=== PATIENT | female | born 1930 | race Caucasian/White ===

== ENCOUNTER 2016-08-31 23:26 | Emergency (ER) | payer MEDICARE, OTHER ==
[~2016-08-31 23:26] MED LIST: AMBIEN5 MG PO; ARTIFICIAL TEAR15 M8 OP; BUDESONIDE EC3 MG PO; BUDESONIDE PO; CALCIUM 6001.5 G PO; CALCIUM CARBON600 M2 PO; CALCIUM CARBONATE PO; CERTAVITE-ANTI1 EACH PO; CHOLESTYRAMINE L4 GM PO; CIPRO250 MG PO; CIPRO500 MG PO; COZAAR50 M1 PO; CULTURELLE1 CA1; CULTURELLE1 CA1 PO; CYANOCOBAL1000 MCG/M IM; CYMBALTA30 M1 PO; EFFEXOR XR150 MG PO; ENTOCORT EC3 MG PO; EVISTA60 M1 PO; EVISTA60 MG PO; FERROUS SU325 ( 65 PO; GABAPENTIN300 MG PO; IMODIUM A-D2 M3 PO; IMODIUM2 MG PO; LEVOTHYROXINE75 MCG PO; LORTAB 5/500 TA1 TAB PO; MACROBID 100 M100 M1 PO; MAGNESIUM100 M1 PO; METHYL B12; MOBIC PO; MUCINEX600 M1 PO; MULTI-VITAMIN1 EAC1 PO; NEURONTIN300 M1 PO; NEURONTIN300 MG PO; NEURONTIN600 M1 PO; NITROFURANTOIN100 M PO; NORCO 5-325 TA1 EACH PO; NORCO 5/3251 TA1 PO; NYSTATIN-TRIAMC15 G1 TOP; NYSTATIN10 GM PO; NYSTEX30 GM TP; NYSTOP60 GM TOP; OCUVITE SOFTGEL1 CA1 PO; OCUVITE TABLET1 EACH PO; OCUVITE TABLET1 TAB PO; OSTEO BI-FLEX1 EAC5 PO; PEPTO-BISMOL262 M PO; PEPTO-BISMOL262 M2 PO; PREDNISONE10 MG PO; PREMARIN VAG CR45 GM OTHER; SINEMET 25-1001 EACH PO; SODIUM CHLOR1 GM/TAB PO; SYNTHROID75 MC1 PO; TUMS300 M1 PO; TUMS300 MG PO; TYLENOL EXTRA500 M1 PO; TYLENOL325 M1 PO; TYLENOL325 MG PO; UCERIS9 M1 PO; VENLAFAXINE HC150 M1 PO; VITAMIN B-121000 MCG IM; VITAMIN B121000 MCG IM; VITAMIN C PO; VITAMIN C500 M1 PO; VITAMIN D32000 UNI1 PO; VITAMIN D32000 UNI3 PO; [UNRECOGNIZED DRUG - OTHER] TP
== END 2016-09-01 02:42 ==
LOC: EDMED 23:26
PROC: 0T9B70Z Drainage of Bladder with Drainage Device, Via Natural or Artificial Opening (ICD-10-PCS; principal; 2016-09-01)
DX: T83.028A Displacement of other urinary catheter, initial encounter (principal)

== ENCOUNTER 2016-10-21 20:05 | Inpatient (IN) | payer MEDICARE, OTHER ==
[2016-10-21 21:46] LABS: BASO % 0.2 % (0-2); EOS % 0.6 % (0-7); EOSINOPHIL ABSOLUTE COUNT 0.1 tho/cmm (0.0-0.7); HCT-HEMATOCRIT 29.7 % (34.0-49.0); HGB-HEMOGLOBIN 9.7 gm/dl (12.0-15.5); IMMATURE GRANULOCYTES ABSOLUTE 0.03 tho/cmm (0-0.03); IMMATURE GRANULOCYTES PERCENT 0.2 % (0-0.3); LYMPH % 11.4 % (20-45); LYMPH ABSOLUTE COUNT 1.4 tho/cmm (0.8-4.5); MCH (MEAN CORPUSCULAR HGB) 32.7 pg (28.0-32.0); MCHC MEAN CORPUSCULAR HGB CONC 32.7 % (32.0-36.0); MEAN PLATELET VOLUME 8.1 cmc (9.4-12.4); MONO % 5.9 % (0-12); MONOCYTE ABSOLUTE COUNT 0.7 tho/cmm (0.0-1.2); NEUTROPHIL ABSOLUTE COUNT 10.2 tho/cmm (1.6-8.0); NEUTROPHIL-AUTOMATED 10.2 tho/cmm (1.6-8.0); NEUTROPHILS % 81.7 % (40-80); PLATELET COUNT 386 tho/cmm (150-450); RED BLOOD COUNT 2.97 mil/cmm (4.00-5.20); RED CELL DISTRIBUTION WIDTH 15.1 % (12.4-16.4); WHITE BLOOD COUNT 12.5 tho/cmm (4.0-10.0)
[2016-10-21 22:00] LABS: ANION GAP 12 mmol/L (0-20); BLOOD UREA NITROGEN 15 mg/dl (6-24); CALCIUM 9.1 mg/dl (8.5-10.5); CARBON DIOXIDE-VENOUS 31 mmol/L (22-32); CHLORIDE 96 mmol/l (96-110); CREATININE 0.52 mg/dl (0.50-1.10); GLUCOSE 122 mg/dL (70-110); POTASSIUM 4.8 mmol/L (3.7-5.1); SODIUM 134 mmol/L (135-145); eGFR VALUE FOR BLACK >90 mL/Min
[2016-10-21 22:41] LABS: ALB/GLOB RATIO 0.8 (0.8-2.0); ALBUMIN 2.8 g/dl (3.5-5.0); BILIRUBIN,DIRECT 0.1 mg/dl (0.0-0.3); BILIRUBIN,INDIRECT 0.2 mg/dL (0.0-1.0); BILIRUBIN,TOTAL 0.3 mg/dl (0-1.5)
[2016-10-22 06:33] LABS: BASO % 0.2 % (0-2); EOS % 0.5 % (0-7); EOSINOPHIL ABSOLUTE COUNT 0.1 tho/cmm (0.0-0.7); HCT-HEMATOCRIT 30.1 % (34.0-49.0); HGB-HEMOGLOBIN 9.8 gm/dl (12.0-15.5); IMMATURE GRANULOCYTES ABSOLUTE 0.07 tho/cmm (0-0.03); IMMATURE GRANULOCYTES PERCENT 0.4 % (0-0.3); LYMPH % 7.8 % (20-45); LYMPH ABSOLUTE COUNT 1.5 tho/cmm (0.8-4.5); MCH (MEAN CORPUSCULAR HGB) 32.3 pg (28.0-32.0); MCHC MEAN CORPUSCULAR HGB CONC 32.6 % (32.0-36.0); MCV (MEAN CELL VOLUME) 99.3 fl (82.0-96.0); MEAN PLATELET VOLUME 8.1 cmc (9.4-12.4); MONO % 4.3 % (0-12); MONOCYTE ABSOLUTE COUNT 0.8 tho/cmm (0.0-1.2); NEUTROPHIL ABSOLUTE COUNT 16.9 tho/cmm (1.6-8.0); NEUTROPHIL-AUTOMATED 16.9 tho/cmm (1.6-8.0); NEUTROPHILS % 86.8 % (40-80); PLATELET COUNT 368 tho/cmm (150-450); RED BLOOD COUNT 3.03 mil/cmm (4.00-5.20)
[2016-10-22 06:35] LABS: WHITE BLOOD COUNT 19.5 tho/cmm (4.0-10.0)
[2016-10-22 06:44] LABS: ALB/GLOB RATIO 0.6 (0.8-2.0); ALBUMIN 2.4 g/dl (3.5-5.0); ALKALINE PHOSPHATASE 41 U/L (33-138); ALT/SGPT 16 U/L (12-78); ANION GAP 7 mmol/L (0-20); AST/SGOT 15 U/L (10-40); BILIRUBIN,TOTAL 0.4 mg/dl (0-1.5); BLOOD UREA NITROGEN 10 mg/dl (6-24); CALCIUM 8.4 mg/dl (8.5-10.5); CARBON DIOXIDE-VENOUS 30 mmol/L (22-32); CHLORIDE 96 mmol/l (96-110); CREATININE 0.48 mg/dl (0.50-1.10); GLUCOSE 94 mg/dL (70-110); POTASSIUM 4.3 mmol/L (3.7-5.1); SODIUM 129 mmol/L (135-145); eGFR VALUE FOR BLACK >90 mL/Min
[2016-10-22] MEDS ORDERED: [UNRECOGNIZED DRUG - OTHER] TP (13:08)
[2016-10-22] MEDS ORDERED: BISCOLAX10 MG PR (13:09)
[2016-10-22] MEDS ORDERED: FLEET ENEMA133 ML PR (13:09)
[2016-10-22] MEDS ORDERED: A AND D OINTM42.5 GM TP (13:10)
[2016-10-22] MEDS ORDERED: LIDOCAINE HCL VG ×2 (13:11→13:12)
[2016-10-22] MEDS ORDERED: CITRATE OF MAG300 M1 PO (13:13)
[2016-10-22] MEDS ORDERED: CIPROFLOXACIN500 M3 PO (13:18)
[2016-10-22] MEDS ORDERED: ENTOCORT EC3 M1 PO (13:20)
[2016-10-22] MEDS ORDERED: TRAZODONE HCL50 M1 PO (13:21)
[2016-10-22] MEDS ORDERED: CULTURELLE1 EAC1 PO (13:21)
[2016-10-22] MEDS ORDERED: OCUVITE WITH L1 EACH PO (13:22)
[2016-10-22] MEDS ORDERED: NITROFURANTOIN100 M3 PO (13:30)
[2016-10-22 14:02] LABS: OSMOLALITY 269 mOsm/kg (275-295)
[2016-10-22] MEDS ORDERED: CARBIDOPA-LEVO1 EAC9 PO (14:03)
[2016-10-22] MEDS ORDERED: TYLENOL325 M2 PO (14:06)
[2016-10-22] MEDS ORDERED: LIQUITEARS15 M1 OP (14:07)
[2016-10-22] MEDS ORDERED: [UNRECOGNIZED DRUG - OTHER] VG (14:08)
[2016-10-22] MEDS ORDERED: VITAMIN B-121000 MC2 PO (14:11)
[2016-10-22 16:08] LABS: URINE SODIUM-RANDOM 51 mmol/L (20-110)
[2016-10-23 05:33] LABS: BASO % 0.2 % (0-2); EOS % 1.1 % (0-7); EOSINOPHIL ABSOLUTE COUNT 0.2 tho/cmm (0.0-0.7); HCT-HEMATOCRIT 27.3 % (34.0-49.0); IMMATURE GRANULOCYTES ABSOLUTE 0.05 tho/cmm (0-0.03); IMMATURE GRANULOCYTES PERCENT 0.4 % (0-0.3); LYMPH % 11.5 % (20-45); LYMPH ABSOLUTE COUNT 1.5 tho/cmm (0.8-4.5); MCH (MEAN CORPUSCULAR HGB) 32.4 pg (28.0-32.0); MCV (MEAN CELL VOLUME) 98.2 fl (82.0-96.0); MONO % 5.2 % (0-12); MONOCYTE ABSOLUTE COUNT 0.7 tho/cmm (0.0-1.2); NEUTROPHIL ABSOLUTE COUNT 10.9 tho/cmm (1.6-8.0); NEUTROPHIL-AUTOMATED 10.9 tho/cmm (1.6-8.0); NEUTROPHILS % 81.6 % (40-80); PLATELET COUNT 355 tho/cmm (150-450); RED BLOOD COUNT 2.78 mil/cmm (4.00-5.20); RED CELL DISTRIBUTION WIDTH 14.9 % (12.4-16.4); WHITE BLOOD COUNT 13.4 tho/cmm (4.0-10.0)
[2016-10-23 05:50] LABS: ANION GAP 9 mmol/L (0-20); BLOOD UREA NITROGEN 8 mg/dl (6-24); CALCIUM 8.1 mg/dl (8.5-10.5); CARBON DIOXIDE-VENOUS 29 mmol/L (22-32); CHLORIDE 98 mmol/l (96-110); CREATININE 0.39 mg/dl (0.50-1.10); GLUCOSE 94 mg/dL (70-110); MAGNESIUM 1.7 mg/dl (1.8-2.6); POTASSIUM 3.8 mmol/L (3.7-5.1); SODIUM 132 mmol/L (135-145); eGFR VALUE FOR BLACK >90 mL/Min
[2016-10-24 06:15] LABS: ANION GAP 13 mmol/L (0-20); BLOOD UREA NITROGEN 6 mg/dl (6-24); CALCIUM 8.4 mg/dl (8.5-10.5); CARBON DIOXIDE-VENOUS 26 mmol/L (22-32); CHLORIDE 100 mmol/l (96-110); GLUCOSE 97 mg/dL (70-110); MAGNESIUM 1.7 mg/dl (1.8-2.6); POTASSIUM 3.7 mmol/L (3.7-5.1); SODIUM 135 mmol/L (135-145); eGFR VALUE FOR BLACK >90 mL/Min
== END 2016-10-24 13:20 | DRG 177 ==
LOC: EDMED 20:05 → EMR2 10-22 00:23 → 5WF 10-22 01:46
PROVIDERS: Emergency Medicine; Family Medicine; Internal Medicine; Registered Nurse; ADMIT Hospitalist
PROC: 02HV33Z Insertion of Infusion Device into Superior Vena Cava, Percutaneous Approach (ICD-10-PCS; principal; 2016-10-23)
DX: J69.0 Pneumonitis due to inhalation of food and vomit (principal); G93.40 Encephalopathy, unspecified; J96.01 Acute respiratory failure with hypoxia; E87.1 Hypo-osmolality and hyponatremia; E83.42 Hypomagnesemia; D51.9 Vitamin B12 deficiency anemia, unspecified; R13.10 Dysphagia, unspecified; D64.9 Anemia, unspecified; M41.9 Scoliosis, unspecified; I10 Essential (primary) hypertension; M81.0 Age-related osteoporosis without current pathological fracture; G25.81 Restless legs syndrome; E78.5 Hyperlipidemia, unspecified; R73.9 Hyperglycemia, unspecified
CPT/HCPCS: C1751; G8996-GN-CL; G8997-GN-CK; J1650; J1956; J2543; J3370; J7030; Q9967